=== PATIENT | male | born 1985 | race African-American/Black ===

== ENCOUNTER 2024-11-15 08:00 | Emergency (ER) | payer OTHER ==
[~2024-11-15] VITALS: Ht 180.3 cm; Wt 85.0 kg
--- NOTE | 2024-11-15 08:25 | ED.PDOC ---
GI ASSESSMENT HPI Comments 39-year-old black male presents to the emergency department complaining of right-sided abdominal pain and rectal pain since a week now patient has no fever no chills nausea no vomiting Chief Complaint: Abdominal Pain Time Seen by MD: 08:06 Primary Care Provider: NONE Reviewed Notes: Nurses Notes, Medications, Allergies Allergies: Coded Allergies: NO KNOWN ALLERGIES (Unverified , 11/15/24) Information Source: Patient Mode of Arrival: Ambulatory Timing: Days Duration: Since onset Quality: Aching, Cramping Vomitus: Soft Stool: Tender, Hemorrhoids, Normal Severity: Moderate Pain Location: RLQ Modifying Factors: Position, Movement Associated sign and symptoms: Abdominal Pain Past Medical History PAST MEDICAL HISTORY: Denies Surgical History: Denies all surgeries Family History Family History: Reviewed,noncontributory to illness, No family hx of Cancer, No family hx of DM, No family hx of Heart isrrael, No family hx of HTN, No family hx ofKidney isrrael, No family hx of Liver isrrael, No family hx of Lung isrrael, No family hx of Stroke Social History Smoker: Cigarettes Alcohol: Denies ETOH Use Drugs: Denies Drug Use Lives In: Home Constitutional: denies: chills, diaphoresis, fatigue, fever, malaise, sweats, weakness, others EENTM: denies: blurred vision, double vision, ear bleeding, ear discharge, ear drainage, ear pain, ear ringing, eye pain, eye redness, hearing loss, mouth pain, mouth swelling, nasal discharge, nose bleeding, nose congestion, nose pain, photophobia, tearing, throat pain, throat swelling, voice changes, others Respiratory: denies: cough, hemoptysis, orthopnea, SOB at rest, shortness of breath, SOB with excertion, stridor, wheezing, others Cardiovascular: denies: chest pain, dizzy spells, diaphoresis, Dyspnea on exertion, edema, irregular heart beat, left arm pain, lightheadedness, palpitations, PND, syncope, others Gastrointestinal: reports: abdominal pain, rectal pain; denies: abdomen distended, blood streaked bowels, constipated, diarrhea, dysphagia, difficulty swallowing, hematemesis, melena, nausea, poor appetite, poor fluid intake, rectal bleeding, vomiting, others Genitourinary: denies: burning, dysuria, flank pain, frequency, hematuria, incontinence, penile discharge, penile sore, pain, testicle pain, testicle swelling, urgency, others Neurological: denies: dizziness, fainting, headache, left sided numbness, left sided weakness, numbness, paresthesia, pre-existing deficit, right sided numbness, right sided weakness, seizure, speech problems, tingling, tremors, weakness, others Musculoskeletal: denies: back pain, gout, joint pain, joint swelling, muscle pain, muscle stiffness, neck pain, others Integumetry: denies: bruises, change in color, change in hair/nails, dryness, laceration, lesions, lumps, rash, wounds, others Allergic/Immunocompromised: denies: Difficulty Healing, Frequent Infections, Hives, Itching, others Hematologic/Lymphatic: denies: anemia, blood clots, easy bleeding, easy b ruising, swollen glands, others Endocrine: denies: excessive hunger, excessive sweating, excessive thirst, excessive urination, flushing, intolerance to cold, intolerance to heat, unexplained weight gain, unexplained weight loss, others Psychiatric: denies: anxiety, bipolar disorder, depression, hopeless, panic disorder, schizophrenia, sleepless, suicidal, others All Other Systems: Reviewed and Negative Physical Exam General Appearance: Moderate Distress HEENT: Normal ENT Inspection, PERRL/EOMI, Pharynx Normal, TMs Normal Neck: Full Range of Motion, Non-Tender, Normal, Normal Inspection Respiratory: Chest Non-Tender, Lungs Clear, No Accessory Muscle Use, No Respiratory Distress, Normal Breath Sounds Cardiovascular: No Edema, No JVD, No Murmur, No Gallop, Normal Peripheral Pulses, Regular Rate/Rhythm Breast Exam: Deferred Gastrointestinal: No Organomegaly, No Pulsatile Mass, RLQ, Tenderness Genitalia: Deferred Pelvic: Deferred Rectal: Heme negative stool, Hemorrhoids, Tenderness, Other (Three small thrombosed hemorrhoids) Extremities: No calf tenderness, Normal capillary refill, Normal inspection, Normal range of motion, Non-tender, No pedal edema Neurologic: Alert, budget counselor II-XII nml as Tested, No Motor Deficits, Normal Affect, Normal Mood, No Sensory Deficits Cerebellar Function: Normal Reflexes: Normal Skin: Dry, Normal Color, Warm Peripheral Pulses: 1+ carotid (R), 1+ carotid (L) Lymphatic: No Adenopathy Was a procedure done? Was a procedure done?: No GI differential Dx Differential Diagnosis: Appendicitis, Gastritis/PUD, Inflammatory BD, Diabetes/ DKA, Electrolyte Imbalance, Other (Multiple thrombosed hemorrhoids) X-Ray, Labs, Meds, VS Vital Signs Date Time Temp Pulse Resp B/P (MAP) Pulse Ox O2 Delivery O2 Flow Rate FiO2 11/15/24 10:54 67 18 116/76 (89) 100 11/15/24 10:01 18 Room Air* 0 21 11/15/24 08:48 61 16 100 Room Air 11/15/24 08:48 98.7 61 16 133/85 (101) 100 98.7 11/15/24 08:04 98.2 71 16 131/87 (102) 99 98.2 11/15/24 08:04 98.2 16 99 131/87 (102) 71 98.2 Lab Test 11/15/24 08:24 11/15/24 08:08 Range/Units White Blood Count 3.5 L 4.4-10.8 10^3/uL Red Blood Count 5.11 4.5-5.90 10^6/uL Hemoglobin 14.6 13.5-17.5 g/dL Hematocrit 43.7 41.0-53.0 % Mean Corpuscular Volume 85.4 80.0-100.0 fL Mean Corpuscular Hemoglobin 28.5 28.0-32.0 pg Mean Corpuscular Hemoglobin Concent 33.4 32.0-36.0 g/dL Red Cell Distribution Width 14.4 H 11.8-14.3 % Platelet Count 196 140-450 10^3/uL Mean Platelet Volume 8.6 6.9-10.8 fL Neutrophils (%) (Auto) 54.2 37.0-80.0 % Lymphocytes (%) (Auto) 31.6 10.0-50.0 % Monocytes (%) (Auto) 12.3 H 0.0-12.0 % Eosinophils (%) (Auto) 1.6 0.0-7.0 % Basophils (%) (Auto) 0.3 0.0-2.0 % Neutrophils # (Auto) 1.9 1.6-8.6 10 ^3/uL Lymphocytes # (Auto) 1.1 0.4-5.4 10 ^3/uL Monocytes # (Auto) 0.4 0-1.3 10 ^3/uL Eosinophils # (Auto) 0.1 0-0.8 10 ^3/uL Basophils # (Auto) 0 0-0.2 10 ^3/uL Nucleated Red Blood Cells 0.2 % Sodium Level 142 136-145 mmol/L Potassium Level 4.3 3.5-5.1 mmol/L Chloride Level 109 H 98-107 mmol/L Carbon Dioxide Level 26 20-31 mmol/L Anion Gap 7 5-15 Blood Urea Nitrogen 12 9-23 mg/dL Creatinine 1.42 H 0.700-1.30 mg/dL Glomerular Filtration Rate Calc 64 >90 mL/min BUN/Creatinine Ratio 8.5 L 10.0-20.0 Serum Glucose 96 74-106 mg/dL Calcium Level 9.6 8.7-10.4 mg/dL Total Bilirubin 0.3 0.2-1.0 mg/dL Aspartate Amino Transferase (AST) 88 H <34 U/L Alanine Aminotransferase (ALT) 52 H 7-40 U/L Alkaline Phosphatase 57 46-116 U/L Total Protein 7.4 5.7-8.2 g/dL Albumin 4.8 3.2-4.8 g/dL Lipase 28 12-53 U/L Urine Color Light-yellow Yellow Urine Clarity Clear Clear Urine pH 5.5 5.0-9.0 Urine Specific [place] 1.016 1.001-1.035 Urine Protein Negative Negative Urine Ketones Negative Negative Urine Blood Negative Negative /uL Urine Nitrite Negative Negative Urine Bilirubin Negative Negative Urine Urobilinogen Normal Negative mg/dL Urine Leukocyte Esterase Negative Negative /uL Urine RBC None seen 0 - 3 /hpf Urine Microscopic WBC < 1 0-3 /HPF Urine Squamous Epithelial Cells None seen <5 /hpf Urine Bacteria None seen None Seen /hpf Urine Mucus Few None Seen Urine Glucose Normal Normal mg/dL Current Medications Medications (Trade) Dose Ordered Sig/Mahsa Route Start Time Stop Time Status Last Admin Sodium Chloride 1,000 ml @ 150 mls/hr Q6H40M ONCE IV 11/15/24 08:30 11/15/24 15:09 11/15/24 09:56 X-Ray, Labs, Meds, VS Comment Course in the emergency department eventful patient came in complaining of abdominal pain on right side but mostly rectal pain since Saturday it is about a week now patient usually healthy The CT BC is normal Urine negative CMP elevated liver enzymes Lipase 28 CT abdomen and pelvis all normal Patient will be discharged home to follow up with his PCP Time of 1ST Reevaluation: 08:25 Reevaluation 1ST: Unchanged Patient Education/Counseling: Diagnosis, Treatment, Prognosis Family Education/Counseling: Diagnosis, Treatment, Prognosis, No Family Present SEPSIS Sepsis Screen Date sepsis recognized/suspect: Nov 15, 2024 Time Sepsis recognized/suspect: 08 Recent Procedure: No On Antibiotic Therapy: No Respiratory Rate >20: No Heart Rate >90: No Temp<36 C (96.8 F) or >38.3 C: No SBP <90 or MAP <65 mmHG: No New Acute Mental Status Change: No Is the patient on CPAP, BIPAP,: No Physician Orders Ct Ab Pel With Iv Con Only (11/15/24 08:16) Heplock Iv (11/15/24 08:16) Sodium Chloride 0.9% (11/15/24 08:30) Vital Signs Date Time Temp Pulse Resp B/P (MAP) Pulse Ox O2 Delivery O2 Flow Rate FiO2 11/15/24 10:54 67 18 116/76 (89) 100 11/15/24 10:01 18 Room Air* 0 21 11/15/24 08:48 61 16 100 Room Air 11/15/24 08:48 98.7 61 16 133/85 (101) 100 98.7 11/15/24 08:04 98.2 71 16 131/87 (102) 99 98.2 11/15/24 08:04 98.2 16 99 131/87 (102) 71 98.2 Laboratory Tests Test 11/15/24 08:24 White Blood Count 3.5 10^3/uL (4.4-10.8) L Medications Medications Dose Ordered Sig/Mahsa Route Start Time Stop Time Status Last Admin Dose Admin Sodium Chloride 1,000 ml @ 150 mls/hr Q6H40M ONCE IV 11/15/24 08:30 11/15/24 15:09 11/15/24 09:56 Departure 1 Departure Time of Disposition: 11:34 Impression: Primary Impression: Right sided abdominal pain Additional Impression: Thrombosed external hemorrhoid Ruled Out: Appendicitis Disposition: 01 HOME / SELF CARE / HOMELESS Condition: Fair Additional Instructions: Sitz bath and follow up with your PCP e-Prescriptions Ibuprofen Micronized (Ibuprofen) 600 Mg Tab 600 MG PO TID for 10 Days, #30 TAB Prov: REID FERNANDES MD 11/15/24 Triamcinolone Acetonide (Triamcinolone Acetonide) 0.1 % Cre 0.1 % EX BID for 10 Days, #100 CRE Prov: REID FERNANDES MD 11/15/24 Hydrocortisone Acetate (Anusol-Hc) 25 Mg Sup 1 SUPP GA BID for 7 Days, #14 SUPP Prov: REID FERNANDES MD 11/15/24 Discharged With: Self Critical Care Note Critical Care Time?: No Stability Stability form required: No Heart Score Heart Score: Heart Score Response (Comments) Value History N/A 0 EKG N/A 0 Age <45 0 Risk Factors No known risk factors 0 Troponin N/A 0 Total 0 REID FERNANDES MD Nov 15, 2024 08:25
[2024-11-15 08:38] LABS: Basophils # (auto) 0 10 ^3/uL (0-0.2); Basophils % (auto) 0.3 % (0.0-2.0); Eosinophils # (auto) 0.1 10 ^3/uL (0-0.8); Eosinophils % (auto) 1.6 % (0.0-7.0); Hematocrit 43.7 % (41.0-53.0); Hemoglobin 14.6 g/dL (13.5-17.5); Lymphocytes # (auto) 1.1 10 ^3/uL (0.4-5.4); Lymphocytes % (auto) 31.6 % (10.0-50.0); Mean Corpuscular Hemoglobin 28.5 pg (28.0-32.0); Mean Corpuscular Hgb Conc. 33.4 g/dL (32.0-36.0); Mean Corpuscular Volume 85.4 fL (80.0-100.0); Monocytes # (auto) 0.4 10 ^3/uL (0-1.3); Monocytes % (auto) 12.3 % (0.0-12.0); Neutrophils # (auto) 1.9 10 ^3/uL (1.6-8.6); Neutrophils % (auto) 54.2 % (37.0-80.0); Nucleated Red Blood Cells % 0.2 %; Platelet Count (auto) 196 10^3/uL (140-450); Red Blood Cells 5.11 10^6/uL (4.5-5.90); Red Cell Distribution Width 14.4 % (11.8-14.3); White Blood Cell 3.5 10^3/uL (4.4-10.8)
[2024-11-15 08:48] VITALS: TEMP 98.7
[2024-11-15 08:51] LABS: Alkaline Phosphatase 57 U/L (46-116); Anion Gap 7 (5-15); BUN/Creatinine Ratio 8.5 (10.0-20.0); Blood Urea Nitrogen 12 mg/dL (9-23); Calcium 9.6 mg/dL (8.7-10.4); Carbon Dioxide 26 mmol/L (20-31); Glucose 96 mg/dL (74-106); Lipase 28 U/L (12-53); Potassium 4.3 mmol/L (3.5-5.1); Sodium 142 mmol/L (136-145); Total Protein 7.4 g/dL (5.7-8.2)
[2024-11-15 08:52] LABS: Alanine Aminotransferase 52 U/L (7-40); Albumin 4.8 g/dL (3.2-4.8); Aspartate Aminotransferase 88 U/L (<34); Bilirubin, Total 0.3 mg/dL (0.2-1.0); Chloride 109 mmol/L (98-107)
[2024-11-15 09:48] LABS: Urine Bacteria None Seen /hpf (None Seen)
[2024-11-15] MEDS: SODIUM CHLORIDE 0.9% 1,000 ML IV ONE (09:56)
[2024-11-15 10:01] VITALS: RESP 18
[2024-11-15] MEDS: IOHEXOL 300 MG/ML 100ML BOTTLE IJ ONE (10:26)
[2024-11-15 10:52] LABS: Urine Blood Negative /uL (Negative); Urine Clarity Clear (Clear); Urine Color Light-Yellow (Yellow); Urine Mucus FEW (None Seen); Urine Protein, UAD Negative (Negative); Urine Specific Gravity 1.016 (1.001-1.035); Urine Squamous Epithelial Cell None Seen /hpf (<5); Urine Urobilinogen Normal (Negative); Urine WBC < 1 /HPF (0-3); Urine pH 5.5 (5.0-9.0)
[2024-11-15 10:54] VITALS: BP 116/76; PULSE 67; RESP 18; O2SAT 100
--- NOTE | 2024-11-15 10:59 | DVH ---
CT ABDOMEN AND PELVIS WITH CONTRAST: HISTORY: Right lower quadrant abdominal pain COMPARISON: None CONTRAST: Type of IV contrast: Omnipaque 300 Contrast injected: 100 ml Contrast wasted: 0 ml TECHNIQUE: Spiral CT performed from the dome of the diaphragm to the pubic symphysis following IV con trast. Dose reduction technique was used on this scan by utilizing automated exposure control, adjustment of the mA and/or kV according to the patient size. DICOM format image data available to non-affiliated external healthcare facilities or entities on a secure, media free, reciprocally searchable basis wit h patient authorization for at least a 12 month period after the study. FINDINGS: Massotherapist: Unremarkable The image lower lungs are unremarkable. The liver, gallbladder, spleen, pancreas, adrenal glands, kidneys, and urinary bladder within normal limits.r prostate is mildly enlarged measuring 5.5 cm in transverse dimension. The stomach, small bowel and colon are within normal limits. The appendix is normal. The imaged vesse ls are unremarkable. No enlarged intra-abdominal lymph nodes. The bones are within normal limits. IMPRESSION: 1. No acute intra-abdominal findings
[2024-11-15] MEDS ORDERED: HYDR25SU21 PR (11:39)
[2024-11-15] MEDS ORDERED: IBUP1TAB5 PO (11:39)
[2024-11-15] MEDS ORDERED: TRIO1TP EX (11:39)
== END 2024-11-15 11:53 | disposition home or self-care (01) ==
LOC: ER 08:00
DX: K64.5 Perianal venous thrombosis (principal); R10.31 Right lower quadrant pain; F17.210 Nicotine dependence, cigarettes, uncomplicated
CPT/HCPCS: 36415; 74177; 80053; 81001; 83690; 85025; 96360; 96361; 99285; J7030; Q9967